=== PATIENT | female | born 1965 | race Two or more races ===

== ENCOUNTER 2020-12-10 07:16 | Emergency (ER) | payer OTHER ==
[~2020-12-10] VITALS: Ht 160 cm; Wt 75.3 kg
[2020-12-10] MEDS ORDERED: ASPirin 81 mg TAB PO ONE (07:45)
[2020-12-10 08:26] LABS: Urine Bacteria NONE SEEN /hpf (None Seen); Urine Blood Negative /uL (Negative); Urine Mucus FEW (None Seen); Urine Specific Gravity 1.012 (1.001-1.035); Urine WBC 1 /hpf (0 - 5)
[2020-12-10 08:49] LABS: Basophils # (auto) 0 10 ^3/uL (0-0.2); Basophils % (auto) 0.5 % (0.0-2.0); Eosinophils # (auto) 0.1 10 ^3/uL (0-0.8); Eosinophils % (auto) 1.5 % (0.0-7.0); Hematocrit 41.9 % (36.0-46.0); Hemoglobin 14.5 g/dL (12.2-16.2); Lymphocytes # (auto) 1.6 10 ^3/uL (0.4-5.4); Lymphocytes % (auto) 23.6 % (10.0-50.0); Mean Corpuscular Hemoglobin 31.4 pg (28.0-32.0); Mean Corpuscular Hgb Conc. 34.7 g/dL (32.0-36.0); Mean Corpuscular Volume 90.3 fL (80.0-100.0); Monocytes # (auto) 0.5 10 ^3/uL (0-1.3); Monocytes % (auto) 7.9 % (0.0-12.0); Neutrophils # (auto) 4.5 10 ^3/uL (1.6-8.6); Neutrophils % (auto) 66.5 % (37.0-80.0); Nucleated Red Blood Cells % 0.1 %; Platelet Count (auto) 257 10^3/uL (140-450); Red Blood Cells 4.64 10^6/uL (4.0-5.20); Red Cell Distribution Width 13.3 % (11.8-14.3); White Blood Cell 6.8 10^3/uL (4.4-10.8)
[2020-12-10 09:05] LABS: Chloride 106 mmol/L (98-107); Potassium 4.4 mmol/L (3.5-5.1); Sodium 138 mmol/L (136-145)
[2020-12-10 09:17] LABS: Alanine Aminotransferase 26 U/L (13-56); Albumin 3.7 g/dL (3.4-5.0); Alkaline Phosphatase 89 U/L (45-117); Anion Gap 6 (5-15); Aspartate Aminotransferase 15 U/L (15-37); BUN/Creatinine Ratio 27.4; Bilirubin, Total 0.2 mg/dL (0.2-1.0); Blood Urea Nitrogen 17 mg/dL (7-18); Calcium 8.7 mg/dL (8.5-10.1); Carbon Dioxide 26 mmol/L (21-32); GFR African American 129 mL/min; GFR Non-African American 107 mL/min; Glucose 101 mg/dL (74-106); Total Protein 7.9 g/dL (6.4-8.2)
[2020-12-10 09:49] VITALS: BP 122/86
== END 2020-12-10 09:49 | disposition home or self-care (01) ==
LOC: ER 07:16
DX: R07.89 Other chest pain (principal); F41.9 Anxiety disorder, unspecified
CPT/HCPCS: 36415; 71045; 80053; 81001; 83880; 84443; 84484; 85025; 85049; 93005

== ENCOUNTER 2021-06-16 08:44 | Emergency (ER) | payer OTHER ==
[~2021-06-16] VITALS: Ht 160 cm; Wt 72.6 kg
[2021-06-16 11:12] VITALS: BP 116/86
[2021-06-16] MEDS ORDERED: methylPREDNISolone SOD SUCC 125 MG/2 ML VL IM ONE (12:30)
[2021-06-16] MEDS ORDERED: AMOX-277 PO (12:39)
[2021-06-16] MEDS ORDERED: PRED20TA2 PO (12:39)
== END 2021-06-16 13:30 | disposition home or self-care (01) ==
LOC: ER 08:44
DX: J02.9 Acute pharyngitis, unspecified (principal)
CPT/HCPCS: 96372; 99283; J2930

== ENCOUNTER 2021-10-07 14:54 | Emergency (ER) | payer OTHER ==
[~2021-10-07] VITALS: Ht 160 cm; Wt 74.8 kg
[~2021-10-07 14:54] MED LIST: AMOX-277 PO; PRED20TA2 PO
[2021-10-07 16:38] LABS: Urine Bacteria FEW /hpf (None Seen); Urine Blood 1+ /uL (Negative); Urine Specific Gravity 1.002 (1.001-1.035); Urine WBC 16 /hpf (0 - 5)
[2021-10-07] MEDS ORDERED: PHEN-1044 PO (18:57)
[2021-10-07] MEDS ORDERED: CEPH-509 PO (18:57)
[2021-10-07 19:06] VITALS: BP 118/76
== END 2021-10-07 19:14 | disposition home or self-care (01) ==
LOC: ER 14:54
DX: N39.0 Urinary tract infection, site not specified (principal)
CPT/HCPCS: 81001

== ENCOUNTER 2025-04-20 06:42 | Outpatient (CLI) | payer OTHER ==
[~2025-04-20 06:42] MED LIST changes: -AMOX-277 PO; +AMOX875T4 PO; +CEPH-509 PO; +PHEN-1044 PO
[2025-04-20 07:36] LABS: Hematocrit 44.0 % (36.0-46.0); Hemoglobin 15.1 g/dL (12.2-16.2); Mean Corpuscular Hemoglobin 31.1 pg (28.0-32.0); Mean Corpuscular Volume 90.8 fL (80.0-100.0); Nucleated Red Blood Cells % 0.1 %
[2025-04-20 08:02] LABS: Alanine Aminotransferase 19 U/L (7-40); Albumin 4.4 g/dL (3.2-4.8); Alkaline Phosphatase 101 U/L (46-116); Anion Gap 8 (5-15); BUN/Creatinine Ratio 17.1 (10.0-20.0); Blood Urea Nitrogen 13 mg/dL (9-23); Calcium 9.5 mg/dL (8.7-10.4); Carbon Dioxide 28 mmol/L (20-31); Glucose 101 mg/dL (74-106); HDL Cholesterol 41 mg/dL (40-59); Potassium 4.2 mmol/L (3.5-5.1); Sodium 143 mmol/L (136-145); Total Protein 7.7 g/dL (5.7-8.2)
[2025-04-20 08:03] LABS: Bilirubin, Total 0.5 mg/dL (0.2-1.0)
[2025-04-20 08:06] LABS: Chloride 107 mmol/L (98-107); Cholesterol 211 mg/dL (< 200); Triglycerides 165 mg/dL (< 150)
[2025-04-20 08:41] LABS: Iron 116.0 ug/dL (50-170)
[2025-04-20 08:44] LABS: Total Iron Binding Capacity 321.0 ug/dL (250-425)
[2025-04-20 08:52] LABS: Ferritin 48.7 ng/mL (10-291); Free T3 4.4 pg/mL (2.3-4.2)
[2025-04-20 12:05] LABS: Hepatitis A Total Antibody Positive (Negative); Hepatitis B Surface Antigen Negative (Negative); Hepatitis C Antibody Negative (Negative)
== END 2025-04-23 17:00 | disposition home or self-care (01) ==
LOC: LAB 06:42
PROVIDERS: ATTEND Licensed Practical Nurse
DX: E55.9 Vitamin D deficiency, unspecified (principal); R53.0 Neoplastic (malignant) related fatigue; Z13.1 Encounter for screening for diabetes mellitus; Z13.29 Encounter for screening for other suspected endocrine disorder; Z00.01 Encounter for general adult medical examination with abnormal findings
CPT/HCPCS: 36415; 80053; 80061; 82043; 82274; 82306; 82607; 82728; 82746; 83036; 83540; 83550; 84443; 84481; 85025; 86704; 86706; 86708; 86803; 87340